=== PATIENT | female | born 1975 | race Caucasian/White ===

== ENCOUNTER → 2017-01-11 | Day surgery (SDC) | payer BC ==
[~2017-01-11] VITALS: Ht 154.9 cm; Wt 117.9 kg
[~2017-01-11] MED LIST: BUPR15TA PO; COLA100C2 OR; DESFLURANE 240 ML INHALANT As Ordered ONE; GLYCOPYRROLATE INJ 0.2 MG/ML 2 ML VIAL As Ordered ONE; HYDR12CA PO; KETOROLAC 60 MG/2 ML VIAL (J1885) As Ordered ONE; LIDOCAINE 2% INJ 100 MG/5 ML SDV (FOR ANES.) As Ordered ONE; LISI10TA4 OR; LR 1,000 ML IV SCH; MEPERIDINE INJ 25 MG/ML VIAL (J2175) As Ordered ONE; METOCLOPRAMIDE INJ 10MG/2ML VIAL (J2765) IV PRN; MIDAZOLAM INJ 2 MG/2 ML VIAL (J2250) As Ordered ONE; MOBI15TA PO; NEOSTIGMINE 1MG/ML 5 ML SYRINGE (J2710) As Ordered ONE; NIFE15TA PO; NORCO, ANEXSIA 5/325MG TABLET (HYDROcodone/ACETAMINOPHEN) PO PRN; NORE0.353 PO; ODANSETRON PO; ONDANSETRON 4MG/2ML VIAL (J2405) As Ordered ONE; ONDANSETRON 4MG/2ML VIAL (J2405) IV PRN; ONDANSETRON PO; PERC5TAB8 OR; PERCOCET 5MG/325MG TAB As Ordered ONE; PERCOCET 5MG/325MG TAB PO PRN; PROPOFOL 200 MG/20 ML VIAL As Ordered ONE; RANI150T PO; ROCURONIUM BROMIDE 50 MG/5 ML VIAL As Ordered ONE; ROPIvacaine 0.5% 30 ML INJECTION (J2795) As Ordered ONE; SERT50TA PO; SING10TA32 PO; SUCCINYLCHOLINE 100 MG/5 ML SYRINGE (J0330) As Ordered ONE; TRAZ50TA4 PO; VITA50003 PO; VITA500T OR; [UNRECOGNIZED DRUG - OTHER] PO; fentaNYL 100 MCG/2 ML INJECTION (J3010) As Ordered ONE; fentaNYL 100 MCG/2 ML INJECTION (J3010) IV PRN
[2017-01-11] MEDS: MEPERIDINE INJ 25 MG/ML VIAL (J2175) IV PRN ×2 (09:35→09:40)
[2017-01-11 11:30] VITALS: BP 125/63
--- NOTE | 2017-01-11 14:29 | RO ---
DATE OF PROCEDURE: 01/11/2017 PREOPERATIVE DIAGNOSIS: Right knee arthritis and medial meniscus tear, morbid obesity. POSTOPERATIVE DIAGNOSIS: Right knee arthritis and medial meniscus tear, morbid obesity. PROCEDURE: Right knee operative arthroscopy, partial medial meniscectomy and chondroplasty of medial femoral condyle and patellofemoral joint. SURGEON: Dr. Adin Hutchison TABLE AND DESK FINISHER: Nathan Osman ANESTHESIA: General. ESTIMATED BLOOD LOSS: Minimal. COMPLICATIONS: None. INDICATION: This is a 41-year-old morbidly obese woman with a body mass index (BMI) of 48 or 49 who presents with longstanding knee pain. MRI scan was consistent with possible medial meniscus tear. She also had some degree of arthritis. She understood the nature of the procedure and wished to go ahead with arthroscopy having failed conservative management. The risks include bleeding, infection, damage to nerves, vessels, persistent pain, blood clots, medical problems, among others. She understood that we are not able to typically do much about arthritis with a knee arthroscopy and that her weight is probably playing a big role in her knee pain. PROCEDURE: The patient was taken to the operating room and placed supine position after general anesthesia was induced. The right lower extremity was prepped and draped in the usual sterile fashion. She had an extremely large thigh and knee which made it very difficult to identify bony landmarks. I was able to find the inferolateral portal using a spinal needle and then made the portal per routine after we did a time-out. I then inserted the camera. We had significant difficulty visualizing, primarily due to her weight and getting around the knee. I irrigated the knee out. I was able to identify the patellofemoral joint. She had extensive grade 3 to 4 changes on the trochlea and some grade 2 to 3 changes on the patella. I proceeded down both medial and lateral gutters, identified the medial compartment. There was a posterior horn medial meniscus tear that I was able to probe and resect this with a combination of basket punch and a 4.2 shaver. There was extensive medial compartment osteoarthritis. There were grade 3 changes. This was smoothed off, just removing any loose articular cartilage flaps. The meniscus was probed and felt to be stable. No clear evidence of other tear. I did debride some of the fat pad, which was unremarkable. I proceeded to the lateral compartment. There was some mild arthritic change there, but no evidence of meniscus pathology. I then proceeded back to the patellofemoral joint and removed any loose articular flaps. I then irrigated copiously, removed the instrumentation, and closed the portals using #4-0 nylon suture. I injected 30 mL of Naropin. This was coded as an unusually difficult procedure due to her morbid obesity and significantly larger leg which made this much more difficult to visualize and perform the surgery. The plan will be routine postoperative. She was taken to recovery room in stable condition after a sterile dressing was applied. No tourniquet had been used.
== END | disposition home or self-care (01) ==
LOC: M SDC 07:06
PROVIDERS: ATTEND Orthopaedic Surgery
DX: M23.221 Derangement of posterior horn of medial meniscus due to old tear or injury, right knee (principal); M17.11 Unilateral primary osteoarthritis, right knee; E66.01 Morbid (severe) obesity due to excess calories; R07.9 Chest pain, unspecified; I73.00 Raynaud's syndrome without gangrene; I10 Essential (primary) hypertension; F41.9 Anxiety disorder, unspecified; F32.9 Major depressive disorder, single episode, unspecified; R29.898 Other symptoms and signs involving the musculoskeletal system; R51 Headache; R06.83 Snoring; G47.30 Sleep apnea, unspecified; Z91.040 Latex allergy status; Z79.899 Other long term (current) drug therapy; Z98.51 Tubal ligation status; Z87.442 Personal history of urinary calculi
CPT/HCPCS: 29881; 97116; J0330; J0690; J1885; J2175; J2250; J2405; J2710; J2795; J3010

== ENCOUNTER 2017-02-21 08:46 | Inpatient (IN) | payer BC ==
[~2017-02-21] VITALS: Ht 154.9 cm; Wt 118.7 kg
[~2017-02-21 08:46] MED LIST changes: -DESFLURANE 240 ML INHALANT As Ordered ONE; -GLYCOPYRROLATE INJ 0.2 MG/ML 2 ML VIAL As Ordered ONE; -KETOROLAC 60 MG/2 ML VIAL (J1885) As Ordered ONE; -LIDOCAINE 2% INJ 100 MG/5 ML SDV (FOR ANES.) As Ordered ONE; -LR 1,000 ML IV SCH; -MEPERIDINE INJ 25 MG/ML VIAL (J2175) As Ordered ONE; -METOCLOPRAMIDE INJ 10MG/2ML VIAL (J2765) IV PRN; -MIDAZOLAM INJ 2 MG/2 ML VIAL (J2250) As Ordered ONE; -NEOSTIGMINE 1MG/ML 5 ML SYRINGE (J2710) As Ordered ONE; -NORCO, ANEXSIA 5/325MG TABLET (HYDROcodone/ACETAMINOPHEN) PO PRN; -ONDANSETRON 4MG/2ML VIAL (J2405) As Ordered ONE; -ONDANSETRON 4MG/2ML VIAL (J2405) IV PRN; -PERCOCET 5MG/325MG TAB As Ordered ONE; -PERCOCET 5MG/325MG TAB PO PRN; -PROPOFOL 200 MG/20 ML VIAL As Ordered ONE; -ROCURONIUM BROMIDE 50 MG/5 ML VIAL As Ordered ONE; -ROPIvacaine 0.5% 30 ML INJECTION (J2795) As Ordered ONE; -SUCCINYLCHOLINE 100 MG/5 ML SYRINGE (J0330) As Ordered ONE; -fentaNYL 100 MCG/2 ML INJECTION (J3010) As Ordered ONE; -fentaNYL 100 MCG/2 ML INJECTION (J3010) IV PRN
[2017-02-21 10:42] LABS: METHADONE URINE NEGATIVE (NEGATIVE)
[2017-02-21 10:51] LABS: MEAN CORPUSCULAR HEMOGLOBIN 31.9 pg (27.0-33.0); MEAN CORPUSCULAR HGB CONC 34.6 g/dl (32.0-36.5); RED CELL DISTRIBUTION WIDTH 12.3 % (11.5-14.5)
[2017-02-21 11:23] LABS: ALBUMIN 3.5 GM/DL (3.2-5.2); ALBUMIN/GLOBULIN RATIO 0.95 (1.00-1.93); ALKALINE PHOSPHATASE 101 U/L (45-117); ALT/SGPT 25 U/L (12-78); ANION GAP 6 MEQ/L (8-16); AST/SGOT 14 U/L (15-37); BILIRUBIN,DIRECT 0.1 MG/DL (0.0-0.2); BILIRUBIN,TOTAL 0.6 MG/DL (0.2-1.0); BLOOD UREA NITROGEN 10 MG/DL (7-18); CALCIUM LEVEL 8.9 MG/DL (8.5-10.1); CARBON DIOXIDE LEVEL 32 MEQ/L (21-32); CHLORIDE LEVEL 106 MEQ/L (98-107); CREATININE FOR GFR 0.74 MG/DL (0.55-1.02); GLOMERULAR FILTRATION RATE > 60.0 (>58); GLUCOSE, FASTING 98 MG/DL (70-105); POTASSIUM SERUM 3.7 MEQ/L (3.5-5.1); SODIUM LEVEL 144 MEQ/L (136-145); TOTAL PROTEIN 7.2 GM/DL (6.4-8.2)
[2017-02-21] MEDS ORDERED: PATIENT COMMENT (14:08)
[2017-02-21] MEDS ORDERED: NIFE30TA7 PO (14:08)
[2017-02-21] MEDS ORDERED: FLON1SPR (14:08)
[2017-02-21 16:56] VITALS: BP 123/77
[2017-02-21] MEDS ORDERED: MOM 30ML SUSPENSION UDC PO PRN (18:15)
[2017-02-21] MEDS ORDERED: MAALOX 30 ML SUSP *UDC PO PRN (18:15)
[2017-02-21] MEDS: FAMOTIDINE 20 MG TAB PO SCH (21:51)
[2017-02-21] MEDS: buPROPion **SR TABLET** (ZYBAN) 150MG PO SCH (21:51)
[2017-02-21] MEDS: traZODone 50 MG TAB PO SCH (21:51)
[2017-02-21] MEDS: ACETAMINOPHEN TAB 650MG DOSE (2X325MG) PO PRN (21:53)
[2017-02-22 06:51] VITALS: BP 124/70
[2017-02-22] MEDS ORDERED: VITAMIN D 50,000 UNITS CAPSULE (ERGOCALCIFEROL 1.25MG) PO SCH (09:00)
[2017-02-22] MEDS: MELOXICAM (MOBIC) 7.5 MG TAB PO SCH (09:08)
[2017-02-22] MEDS: FAMOTIDINE 20 MG TAB PO SCH ×2 (09:08→21:32)
[2017-02-22] MEDS: FLUTICASONE PROP 0.05% NASAL SPRAY 16 GM (FLONASE) SCH (09:08)
[2017-02-22] MEDS: MONTELUKAST 10 MG TAB PO SCH (09:08)
[2017-02-22] MEDS: buPROPion **SR TABLET** (ZYBAN) 150MG PO SCH ×2 (09:08→21:32)
[2017-02-22] MEDS: hydroCHLOROthiazide 12.5 MG CAPSULE PO SCH (09:08)
[2017-02-22] MEDS: NIFEdipine 30 MG XL TAB PO SCH (09:09)
[2017-02-22] MEDS: SERTRALINE HCL 50 MG TAB PO SCH (09:09)
--- NOTE | 2017-02-22 09:13 | HPEPDOC ---
Medical History and Physical Date of Admission Feb 21, 2017 at 13:20 History and Physical PCP: Dr Manuelito Falcon ATTENDING: Dr. Chase Casiano HPI: 41yo female admitted to [facility] for unspecified depressive disorder, being medically examined today. No acute medical complaints today. Denies any fevers, chills, weakness, fatigue, PEGUERO, CP, SOB, cough, palpitations, abdominal pain, N/V /D or changes in bowel or bladder habits. PMHx: GERD Hypertension Depression Anxiety Insomnia Allergic rhinitis History of kidney stones Self-mutilation Osteoarthritis/chronic right knee pain PTSD Vitamin D deficiency Obesity, BMI 48.1 PSHX: Right knee arthroscopy 01/24 Tonsillectomy Uterine ablation Cholecystectomy Cystoscopy/stone removal Bilateral tubal ligation SOCHX: Resides in: [facility] Marital Status: Kids: Two Employment: [employer] Tobacco use: Denies ETOH: Denies Illicit Drugs: Denies IV Drug Use: Denies Tattoos done unprofessionally: Denies FAMHX: Mother: Alive, diabetes Father: , unknown Siblings: 2 step siblings Alive, well Children: Alive, well Unexpected deaths due to medical reasons: None. ROS: As noted in HPI, otherwise 11pt ROS of systems reviewed and remarkable only for LMP unknown, history of uterine ablation. PE: GEN: 41 yo F, appears stated age. Well-nourished, well developed. No acute distress. Alert and oriented x 3. Pleasant, interactive. HEENT: Normocephalic, atraumatic. Pupils are equal, round, and reactive to light. Extraocular movements are intact. No nystagmus appreciated. Sclera are nonicteric. Conjunctiva without injection. Nose midline. Nasal turbinates without bogginess. EACs both patent BL. TMs both visualized and newsome with good cone of light, no bulging or erythema. No facial asymmetry. Moist mucous membranes. Dentition fair. Pharynx pink and moist, no cobblestoning. Neck supple , trachea midline. No lymphadenopathy or thyromegaly appreciated. CHEST: Regular rate and rhythm, +S1, +S2 LUNGS: Clear to auscultation bilaterally. No wheezes, rales, or rhonchi. Breathing appears symmetric and easy. Patient is speaking in full sentences. No accessory muscle use. ABD: Round, soft, non-tender, non-distended. +Bowel sounds throughout. No rebound or guarding. No costovertebral angle tenderness. EXT: Pulses 2+ bilaterally dorsalis pedis and radial. No lower extremity edema appreciated. SKIN: Star, dry, warm. Capillary refill <2sec. No rashes. Small laceration is noted at the left wrist. No drainage, no erythema. NEURO: Alert and oriented x 3. Cranial nerves III-XII are intact. No focal deficits appreciated. EKG: pending. A&P: 41yo female admitted to [facility] for unspecified depressive disorder 1. Psych. Plan per Psychiatry. Obtain baseline EKG to assure the safety of psychiatric medications as they can prolong the QT interval. 2. Left wrist laceration. Appears to be healing. Dry dressing if needed. 3. Hypertension. Continue hydrochlorothiazide 12.5 mg daily and nifedipine ER 30 mg by mouth daily. 4. Follow up with PCP on discharge. 5. GERD. Continue Pepcid. 6. Allergic rhinitis. Continue Singulair 10 mg daily and Flonase 2 sprays each nostril daily. 7. Vitamin D deficiency. Continue vitamin D supplement. Update vitamin D level. 8. Obesity. BMI noted to be 48.1. Complicates care. 9. Chronic right knee pain. Continue meloxicam 15 mg daily. 10. Patient remains on OCP from home. 11. Davida VIDES present throughout exam. Vital Signs Vital Signs Date Time Temp Pulse Resp B/P (MAP) Pulse Ox O2 Delivery O2 Flow Rate FiO2 02/22/17 06:51 98.2 61 16 124/70 (88) 02/21/17 15:43 96 02/21/17 09:29 Room Air Laboratory Data Labs 24H Laboratory Tests 2 02/21/17 10:13: Urine Amphetamines Screen NEGATIVE, Urine Benzodiazepines Screen NEGATIVE, Urine Opiates Screen NEGATIVE, Urine Methadone Screen NEGATIVE, Urine Barbiturates Screen NEGATIVE, Urine Phencyclidine Screen NEGATIVE, Urine Cocaine Metabolite Screen NEGATIVE, Urine Cannabinoids Screen NEGATIVE 02/21/17 10:40: Anion Gap 6L, Glomerular Filtration Rate > 60.0, Calcium Level 8.9, Aspartate Amino Transf (AST/SGOT) 14L, Alanine Aminotransferase (ALT/SGPT) 25, Alkaline Phosphatase 101, Total Bilirubin 0.6, Direct Bilirubin 0.1, Total Protein 7.2, Albumin 3.5, Albumin/Globulin Ratio 0.95L, Thyroid Stimulating Hormone (TSH) 2.500, Salicylates Level < 1.7L, Acetaminophen Level < 2.0L, Ethyl Alcohol Level < 0.003 CBC/BMP Laboratory Tests 02/21/17 10:40 Red Blood Count 4.53, Mean Corpuscular Volume 92.0, Mean Corpuscular Hemoglobin 31.9, Mean Corpuscular Hemoglobin Concent 34.6, Red Cell Distribution Width 12.3 Home Medications Scheduled (Norethindrone) 0.35 Mg Tab, 0.35 MG PO DAILY (Flonase Allergy Relief) 50 Mcg/Act Spr, 2 SPRAY NA DAILY Bupropion HCl (Wellbutrin Sr) 150 Mg Tabcr, 150 MG PO BID Ergocalciferol (Vitamin D) 50,000 Unit Cap, 50,000 UNIT PO Q2WK TAKES THE 1ST AND 15TH OF EVERY MONTH Hydrochlorothiazide (Hydrochlorothiazide) 12.5 Mg Cap, 12.5 MG PO DAILY Meloxicam (Mobic) 15 Mg Tab, 15 MG PO DAILY Montelukast Sodium (Singulair) 10 Mg Tab, 10 MG PO DAILY Nifedipine (Nifedipine ER) 30 Mg Tab, 30 MG PO DAILY Ranitidine HCl (Ranitidine HCl) 150 Mg Tab, 1 TAB PO BID Sertraline Hcl (Sertraline HCl) 50 Mg Tab, 150 MG PO DAILY Trazodone HCl (Trazodone HCl) 50 Mg Tab, 50 MG PO QHS Miscellaneous Medications [Patient Comment] PATIENT STATES SHE HAS BEEN OUT OF ALL OF HER MEDICATIONS FOR ABOUT 2 WEEKS, DOES HAVE TRAZODONE AND FLONASE Allergies Coded Allergies: Latex (Verified Allergy, Unknown, RASH, 02/21/17) Rula Abreu Feb 22, 2017 09:13
[2017-02-22 10:23] LABS: CONTROL LINE HCG INT CTR LINE PRESENT
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
[2017-02-22] MEDS: ACETAMINOPHEN TAB 650MG DOSE (2X325MG) PO PRN (16:12)
--- NOTE | 2017-02-22 17:17 | ECGEPIP ---
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
[2017-02-22 18:00] VITALS: BP 117/61
[2017-02-22] MEDS: traZODone 50 MG TAB PO SCH (21:32)
[2017-02-23 06:45] VITALS: BP 142/98
[2017-02-23] MEDS: MELOXICAM (MOBIC) 7.5 MG TAB PO SCH (08:30)
[2017-02-23] MEDS: FAMOTIDINE 20 MG TAB PO SCH ×2 (08:30→21:31)
[2017-02-23] MEDS: buPROPion **SR TABLET** (ZYBAN) 150MG PO SCH ×2 (08:30→21:31)
[2017-02-23] MEDS: MONTELUKAST 10 MG TAB PO SCH (08:30)
[2017-02-23] MEDS: FLUTICASONE PROP 0.05% NASAL SPRAY 16 GM (FLONASE) SCH (08:30)
[2017-02-23] MEDS: SERTRALINE HCL 50 MG TAB PO SCH (08:30)
[2017-02-23] MEDS: NIFEdipine 30 MG XL TAB PO SCH (08:31)
[2017-02-23] MEDS: hydroCHLOROthiazide 12.5 MG CAPSULE PO SCH (08:31)
[2017-02-23] MEDS ORDERED: NORETHINDRONE 0.35 MG PO SCH (09:00)
[2017-02-23] MEDS: ACETAMINOPHEN TAB 650MG DOSE (2X325MG) PO PRN (13:14)
--- NOTE | 2017-02-23 16:11 | MHIPNPDOC ---
[facility] Progress Note Progress Note DATE OF SERVICE: 02/23/17 HISTORY OF THE PRESENT ILLNESS: Patient is a 41-year-old female who reportedly had gone to [facility]'s office where her psychotropic medications are managed and cut herself on wrist with her lopez while waiting to see . Patient was then sent to [facility] ER for evaluation by outpatient provider, indicated admission she had been experiencing passive suicidal ideation, but denies having plan or intent to kill self at the time. Crystal Flat Grinder met with patient today to assess treatment progress on inpatient unit. Patient reports ongoing improvement to symptoms since restarting her medication regimen prescribed by her outpatient provider which she had been taking with good effect up until 2 weeks ago. Patient denies medication side effects. Patient reports current anxiety level of 3/10, depression 3/10, denies suicidal and homicidal ideation, denies auditory or visual hallucinations, denies urge to engage in self-injurious behavior. Patient indicates she has been sleeping well and denies nightmare symptoms, states energy level and appetite are improving, states concentration and focus remain challenging. Patient denies physical pain and presents with no signs of acute distress at time of interaction. Patient states and friend visited her on the unit last night and indicates visits went well. VITALS: See below NEW TEST RESULTS: No new results PAST MEDICAL/SURGICAL HISTORY: GERD, hypertension, allergic rhinitis, history of kidney stones, osteoarthritis/chronic right knee pain, vitamin D deficiency, obesity, right knee arthroscopic the 01/2017, tonsillectomy, uterine ablation, cholecystectomy, cystoscopy/stone removal, bilateral tubal ligation. Patient has laceration to left wrist which appears to be healing, PA is aware and is treating Labs on admission indicated low anion gap, AST and AGR UDS negative HCG negative 02/22/17 Normal sinus rhythm Normal EKG Comparison tracing not on file CURRENT MEDICATIONS: See below MENTAL STATUS EXAMINATION: General appearance: Patient is a 41-year old female, who is pleasant and cooperative, engageable, makes fair eye contact, is less disheveled today, dressed in hospital clothing, ambulates with steady gait, appears stated age Speech: Of normal rate, rhythm, volume, spontaneous, coherent Thought processes: Linear, logical, goal-directed. Thought content: Rational, logical, no tangentiality or paranoia noted, no perseveration. Abstract reasoning and computation: Appear intact Description of associations: Intact. Description of abnormal or psychotic thoughts: Patient denies suicidal or homicidal ideation, denies auditory or visual hallucinations, does not appear to be responding to internal stimuli, does not endorse bizarre or paranoid ideation, and denies preoccupation with violence or obsessions. Judgment: Poor. Insight: Poor. Orientation: A and O 3. Recent and remote memory: Appear intact Attention span and concentration: Appears within normal limits. Fund of knowledge: Adequate. Mood: "I'm ok, I feel pretty good in the hospital." Patient continues to appear depressed and anxious, no mood lability noted Affect: Blunted but brightens, congruent with mood. DIAGNOSES: Major depressive disorder, recurrent, moderate, rule out anxiety disorder, rule out PTSD, rule out bereavement ASSESSMENT: Patient appears to be adjusting to unit, isolates to room at times but is generally visible on unit, engaging selectively with staff and peers, is pleasant and cooperative, and presents with no behavior management challenges. Patient reports improvement to symptoms of anxiety and depression since restarting medication regimen which she had been taking in outpatient environment, denies need for dosing adjustment and denies medication side effects. Patient denies current suicidal or homicidal ideation and verbalizes awareness of how to access supportive services on the unit if needed. Will continue to monitor patient's response to medication restart and will monitor for medication side effects, will evaluate patient's safety, resolution of suicidal ideation and urge to engage in self-injurious behavior, and discharge readiness. Patient reiterates today when prepared for discharge she plans to return home with her and resume outpatient medication management with Dr. Medeiros. Patient is also agreeable to participating in case management and psychotherapy services through [facility]. MANAGEMENT PLAN: Continue Zoloft 150 mg po q day, Wellbutrin SR 150 mg po BID, and trazodone 50 mg po q hs Maintain safety precautions Patient to attend groups and participate in unit programming to develop coping strategies Engage patient in discharge planning process and arrange meeting with support system to ensure safe discharge planning when appropriate Patient to follow up with PCM upon discharge TIME SPENT: 35 minutes Vital Signs Vital Signs Date Time Temp Pulse Resp B/P (MAP) Pulse Ox O2 Delivery O2 Flow Rate FiO2 02/23/17 08:31 128/78 02/23/17 06:45 98.3 73 20 02/21/17 15:43 96 02/21/17 09:29 Room Air Current Medications Current Medications Acetaminophen (Tylenol Tab) 650 mg Q6HP PRN PO HEADACHE or DISCOMFORT Last administered on 02/23/17 13:14; Start 02/21/17 at 18:15; Stop 03/23/17 at 18:14 Al Hydrox/Mg Hydrox/Simethicone (Mylanta) 30 ml Q4HP PRN PO HEARTBURN/ INDIGESTION; Start 02/21/17 at 18:15; Stop 03/23/17 at 18:14 Bupropion HCl (Zyban, Wellbutrin Sr) 150 mg BID PO Last administered on 08:30; Start 02/21/17 at 21:00; Stop 03/23/17 at 20:59 Famotidine (Pepcid) 20 mg BID PO Last administered on 02/23/17 08:30; Start at 21:00; Stop 03/23/17 at 20:59 Fluticasone Propionate (Flonase 0.05% Nasal [place]) 2 spray DAILY NA Last administered on 02/23/17 08:30; Start 02/22/17 at 09:00; Stop 03/24/17 at 08:59 Home Med (Med Rec Complete!) ASDIRECTED XX ; Start 02/21/17 at 14:15; Stop at 14:15; Status DC Hydrochlorothiazide (Hydrodiuril) 12.5 mg DAILY PO Last administered on 08:31; Start 02/22/17 at 09:00; Stop 03/24/17 at 08:59 Magnesium Hydroxide (Milk Of Magnesia) 30 ml DAILYPRN PRN PO CONSTIPATION; Start 02/21/17 at 18:15; Stop 03/23/17 at 18:14 Meloxicam (Mobic) 15 mg DAILY PO Last administered on 02/23/17 08:30; Start at 09:00; Stop 03/24/17 at 08:59 Miscellaneous (Unresolved Clarification Entry) SEE LABEL COMMENTS UNRESOLVED XX ; Start 02/21/17 at 00:01; Stop 03/23/17 at 00:00 Montelukast Sodium (Singulair) 10 mg DAILY PO Last administered on 02/23/17 08 :30; Start 02/22/17 at 09:00; Stop 03/24/17 at 08:59 Nifedipine (Procardia Xl) 30 mg DAILY PO Last administered on 02/23/17 08:31; Start 02/22/17 at 09:00; Stop 03/24/17 at 08:59 Patient Own Medication (Patient'S Own Med) Norethindrone 0.35 mg po daily DAILY PO ; Start 02/23/17 at 09:00; Stop 03/25/17 at 08:59; Status Future Hold Sertraline HCl (Zoloft) 150 mg DAILY PO Last administered on 02/23/17 08:30; Start 02/22/17 at 09:00; Stop 03/24/17 at 08:59 Trazodone HCl (Desyrel) 50 mg QHS PO Last administered on 02/22/17 21:32; Start 02/21/17 at 21:00; Stop 03/23/17 at 20:59 Vitamin D (Drisdol) 50,000 units Q14D@09 PO Last administered on 02/22/17 09: 08; Start 02/22/17 at 09:00; Stop 02/22/17 at 14:45; Status DC Vitamin D (Drisdol) 50,000 units Th@09 PO ; Start 03/01/17 at 09:00; Stop at 08:59 Allergies Coded Allergies: Latex (Verified Allergy, Unknown, RASH, 02/21/17) Krys Mcrae Feb 23, 2017 16:11
[2017-02-23 18:00] VITALS: BP 118/68
[2017-02-23] MEDS: traZODone 50 MG TAB PO SCH (21:31)
[2017-02-24 06:32] VITALS: BP 125/73
[2017-02-24] MEDS: MELOXICAM (MOBIC) 7.5 MG TAB PO SCH (09:01)
[2017-02-24] MEDS: FAMOTIDINE 20 MG TAB PO SCH ×2 (09:01→22:47)
[2017-02-24] MEDS: FLUTICASONE PROP 0.05% NASAL SPRAY 16 GM (FLONASE) SCH (09:01)
[2017-02-24] MEDS: MONTELUKAST 10 MG TAB PO SCH (09:02)
[2017-02-24] MEDS: NIFEdipine 30 MG XL TAB PO SCH (09:02)
[2017-02-24] MEDS: buPROPion **SR TABLET** (ZYBAN) 150MG PO SCH ×2 (09:02→22:47)
[2017-02-24] MEDS: SERTRALINE HCL 50 MG TAB PO SCH (09:02)
[2017-02-24] MEDS: hydroCHLOROthiazide 12.5 MG CAPSULE PO SCH (09:02)
[2017-02-24] MEDS: ACETAMINOPHEN TAB 650MG DOSE (2X325MG) PO PRN (14:45)
[2017-02-24] MEDS ORDERED: IBUPROFEN 600 MG TAB PO ONE (18:00)
[2017-02-24 18:15] VITALS: BP 115/72
[2017-02-24] MEDS: traZODone 50 MG TAB PO SCH (22:47)
[2017-02-25 06:16] VITALS: BP 113/62
--- NOTE | 2017-02-25 07:40 | IPN ---
DATE: 02/24/2017 SUBJECTIVE: "I am feeling a little better." OBJECTIVE: The patient continues to improve slowly. The patient reports good sleep with the help of trazodone. Denies any side effects from the medication. No evidence of psychotic symptoms. No auditory or visual hallucinations or delusions. MENTAL STATUS EXAMINATION: The patient is dressed in [facility]. The patient is cooperative. Speech is normal in rate, volume and articulation. Mood is depressed and anxious. Affect is restricted. No delusions or hallucinations. Memory, attention and concentration are fair. The patient is able to contract for safety during the hospitalization. Insight and judgment is limited. ASSESSMENT: 1. Depression. 2. Suicidal ideation. PLAN: 1. Continue with Zoloft 150 mg by mouth every morning. 2. Continue with bupropion 150 mg by mouth twice a day 3. Continue with trazodone 50 mg by mouth nightly. 4. Continue medication management, individual and group therapy.
[2017-02-25] MEDS: hydroCHLOROthiazide 12.5 MG CAPSULE PO SCH (09:04)
[2017-02-25] MEDS: NIFEdipine 30 MG XL TAB PO SCH (09:04)
[2017-02-25] MEDS: buPROPion **SR TABLET** (ZYBAN) 150MG PO SCH ×2 (09:04→21:19)
[2017-02-25] MEDS: MONTELUKAST 10 MG TAB PO SCH (09:05)
[2017-02-25] MEDS: FAMOTIDINE 20 MG TAB PO SCH ×2 (09:05→21:20)
[2017-02-25] MEDS: SERTRALINE HCL 50 MG TAB PO SCH (09:05)
[2017-02-25] MEDS: MELOXICAM (MOBIC) 7.5 MG TAB PO SCH (09:05)
[2017-02-25] MEDS: FLUTICASONE PROP 0.05% NASAL SPRAY 16 GM (FLONASE) SCH (09:07)
[2017-02-25 18:00] VITALS: BP 122/78
--- NOTE | 2017-02-25 18:50 | IPN ---
DATE: 02/25/2017 SUBJECTIVE: "I'm feeling better." OBJECTIVE: The patient continues improving. The patient's facial expression is better, as is her psychomotor retardation. The patient is able to contract for safety during the interview. The patient is denying side effect from the medication. No evidence of psychotic symptoms. Motivated for treatment. MENTAL STATUS EXAMINATION: Patient dressed in [facility]. Patient is cooperative. Speech is normal in rate, volume and articulation. Mood is depressed but improving. Affect is less restricted. No delusions or hallucinations. Memory, attention and concentration are fair. The patient is able to contract for safety during her hospitalization. Insight and judgment are fair. ASSESSMENT: 1. Depression. 2. Suicidal ideation. PLAN: 1. Continue Zoloft 150 mg by mouth every morning. 2. Continue bupropion 150 mg by mouth twice a day. 3. Continue trazodone 50 mg by mouth at bedtime. 4. Continue medication management, individual and group therapy.
[2017-02-25] MEDS: traZODone 50 MG TAB PO SCH (21:19)
[2017-02-25] MEDS: ACETAMINOPHEN TAB 650MG DOSE (2X325MG) PO PRN (22:01)
[2017-02-26 07:12] VITALS: BP 165/76
[2017-02-26] MEDS: MELOXICAM (MOBIC) 7.5 MG TAB PO SCH (09:12)
[2017-02-26] MEDS: FLUTICASONE PROP 0.05% NASAL SPRAY 16 GM (FLONASE) SCH (09:12)
[2017-02-26] MEDS: buPROPion **SR TABLET** (ZYBAN) 150MG PO SCH ×2 (09:12→21:59)
[2017-02-26] MEDS: FAMOTIDINE 20 MG TAB PO SCH ×2 (09:12→22:00)
[2017-02-26] MEDS: NIFEdipine 30 MG XL TAB PO SCH (09:13)
[2017-02-26] MEDS: MONTELUKAST 10 MG TAB PO SCH (09:13)
[2017-02-26] MEDS: hydroCHLOROthiazide 12.5 MG CAPSULE PO SCH (09:13)
[2017-02-26] MEDS: SERTRALINE HCL 50 MG TAB PO SCH (09:14)
--- NOTE | 2017-02-26 16:14 | MHIPNPDOC ---
[facility] Progress Note Progress Note DATE OF SERVICE: 02/26/17 HISTORY: day 6. Pt admitted with depression. Was out of meds for 2 weeks due to lack of funds. saw pt in the absence of her usual tx provider. VITAL SIGNS: See below. NEW TEST RESULTS: na CURRENT MEDICATIONS: See below. MENTAL STATUS EXAMINATION: Patient is a 41-year old female, who is dressed in hospital attire, easy to engage, makes good eye contact and smiles as she talks about her land and home. Speech: Is spontaneous, soft and clear. Even r/r. Language skills are intact Thought processes including: coherent Thought content: appropriate. Abstract reasoning, and computation: concrete. Description of associations: good. Description of abnormal or psychotic thoughts: denies perceptual disturbance. no delusions noted. Denies suicidal thoughts. Judgment: fair Insight: fair. Orientation: well oriented in all spheres. Recent and remote memory: appears intact Attention span and concentration: adequate Fund of knowledge:full Mood: depressed. Affect: has range. DIAGNOSES: Major depressive disorder, recurrent, moderate, rule out anxiety disorder, rule out PTSD, rule out bereavement ASSESSMENT:pt seen in the absence of her provider, Krys Mcrae APN. She states her is brining in her medication and her CPAP tonight. States she is having difficulty sleeping. Is using Trazodone and agrees to raising the dose. Pt also reports right upper quadrant abdominal pain and states "I hope it is not a kidney stone", then adds that she can have kidney stones and no pain. We will monitor and asked pt to keep track if pain increases or changes. She denies pain currently, just last night. Pt is visible in the [facility] area, working on a puzzle with peers. Talks excitedly about her new home they plan to build on 15 [address] in [place]. She and her are living in a tent right now. She is able to shower at different friends homes or other places. Talked with pt about patient assistance programs available by the pharmaceutical companies, that pay for their monthly medications. Will inquire to see of provider and or DC Sheet Cutting Operator are already looking into this. Pt denies SI and HI. Pt denies psychotic symptoms and non are illicited. MANAGEMENT PLAN: will review trazodone and increase by 50 mg for c/o insomnia. pt denies any immediate concerns or needs. TIME SPENT: 15 minutes. Vital Signs Vital Signs Date Time Temp Pulse Resp B/P (MAP) Pulse Ox O2 Delivery O2 Flow Rate FiO2 02/26/17 09:13 165/76 02/26/17 07:12 97.5 77 16 02/21/17 15:43 96 02/21/17 09:29 Room Air Current Medications Current Medications Acetaminophen (Tylenol Tab) 650 mg Q6HP PRN PO HEADACHE or DISCOMFORT Last administered on 02/25/17 22:01; Start 02/21/17 at 18:15; Stop 03/23/17 at 18:14 Al Hydrox/Mg Hydrox/Simethicone (Mylanta) 30 ml Q4HP PRN PO HEARTBURN/ INDIGESTION; Start 02/21/17 at 18:15; Stop 03/23/17 at 18:14 Bupropion HCl (Zyban, Wellbutrin Sr) 150 mg BID PO Last administered on 09:12; Start 02/21/17 at 21:00; Stop 03/23/17 at 20:59 Famotidine (Pepcid) 20 mg BID PO Last administered on 02/26/17 09:12; Start at 21:00; Stop 03/23/17 at 20:59 Fluticasone Propionate (Flonase 0.05% Nasal [place]) 2 spray DAILY NA Last administered on 02/26/17 09:12; Start 02/22/17 at 09:00; Stop 03/24/17 at 08:59 Home Med (Med Rec Complete!) ASDIRECTED XX ; Start 02/21/17 at 14:15; Stop at 14:15; Status DC Hydrochlorothiazide (Hydrodiuril) 12.5 mg DAILY PO Last administered on 09:13; Start 02/22/17 at 09:00; Stop 03/24/17 at 08:59 Magnesium Hydroxide (Milk Of Magnesia) 30 ml DAILYPRN PRN PO CONSTIPATION; Start 02/21/17 at 18:15; Stop 03/23/17 at 18:14 Meloxicam (Mobic) 15 mg DAILY PO Last administered on 02/26/17 09:12; Start at 09:00; Stop 03/24/17 at 08:59 Miscellaneous (Unresolved Clarification Entry) SEE LABEL COMMENTS UNRESOLVED XX ; Start 02/21/17 at 00:01; Stop 03/23/17 at 00:00 Montelukast Sodium (Singulair) 10 mg DAILY PO Last administered on 02/26/17 09 :13; Start 02/22/17 at 09:00; Stop 03/24/17 at 08:59 Nifedipine (Procardia Xl) 30 mg DAILY PO Last administered on 02/26/17 09:13; Start 02/22/17 at 09:00; Stop 03/24/17 at 08:59 Patient Own Medication (Patient'S Own Med) Norethindrone 0.35 mg po daily DAILY PO ; Start 02/23/17 at 09:00; Stop 03/25/17 at 08:59; Status Future Hold Sertraline HCl (Zoloft) 150 mg DAILY PO Last administered on 02/26/17 09:14; Start 02/22/17 at 09:00; Stop 03/24/17 at 08:59 Trazodone HCl (Desyrel) 50 mg QHS PO Last administered on 02/25/17 21:19; Start 02/21/17 at 21:00; Stop 03/23/17 at 20:59 Vitamin D (Drisdol) 50,000 units Q14D@09 PO Last administered on 02/22/17 09: 08; Start 02/22/17 at 09:00; Stop 02/22/17 at 14:45; Status DC Vitamin D (Drisdol) 50,000 units Th@09 PO ; Start 03/01/17 at 09:00; Stop at 08:59 Allergies Coded Allergies: Latex (Verified Allergy, Unknown, RASH, 02/21/17) Patricia Yen Feb 26, 2017 16:14
[2017-02-26 18:00] VITALS: BP 143/78
[2017-02-26] MEDS: traZODone 100 MG TAB PO SCH (22:00)
[2017-02-27 06:00] VITALS: BP 138/70
[2017-02-27] MEDS: FLUTICASONE PROP 0.05% NASAL SPRAY 16 GM (FLONASE) SCH (09:43)
[2017-02-27] MEDS: buPROPion **SR TABLET** (ZYBAN) 150MG PO SCH ×2 (09:44→21:48)
[2017-02-27] MEDS: MONTELUKAST 10 MG TAB PO SCH (09:44)
[2017-02-27] MEDS: NORETHINDRONE 0.35 MG PO SCH (09:44)
[2017-02-27] MEDS: FAMOTIDINE 20 MG TAB PO SCH ×2 (09:44→21:48)
[2017-02-27] MEDS: hydroCHLOROthiazide 12.5 MG CAPSULE PO SCH (09:44)
[2017-02-27] MEDS: MELOXICAM (MOBIC) 7.5 MG TAB PO SCH (09:44)
[2017-02-27] MEDS: SERTRALINE HCL 50 MG TAB PO SCH (09:44)
[2017-02-27] MEDS: NIFEdipine 30 MG XL TAB PO SCH (09:45)
--- NOTE | 2017-02-27 11:19 | MHIPNPDOC ---
[facility] Progress Note Progress Note DATE OF SERVICE: 02/27/17 HISTORY OF THE PRESENT ILLNESS: Patient is a 41-year-old female who reportedly had gone to PCM's office where her psychotropic medications are managed and cut herself on wrist with her lopez while waiting to see . Patient was then sent to [facility] ER for evaluation by outpatient provider, indicated admission she had been experiencing passive suicidal ideation, but denies having plan or intent to kill self at the time. Wind Farm Operations Manager met with patient today to assess treatment progress on inpatient unit. Patient reports current anxiety level /10, depression 3/10, attributes symptoms to "my roommate got discharged today." Patient reports ongoing improvement to symptoms since restarting medication regimen prescribed by her outpatient provider which she stated she had been taking with good effect up until 2 weeks ago. Patient denies medication side effects. Patient denies suicidal and homicidal ideation, however, apparently over the weekend reported to other providers that she was experiencing suicidal ideation with plan to cut , patient denies symptoms today. Patient denies auditory or visual hallucinations, denies current urge to engage in self-injurious behavior. Patient reports improved sleep with recent trazodone dose increase and use of CPAP, denies nightmare symptoms. Patient states energy level and appetite continued to improve, notes concentration and focus remain challenging and informs credit underwriter today that she has been experiencing periods of "blanking out, losing track of time, and people at work sometimes have had to redirect me to tell me what I was doing." Patient denies physical pain and presents with no signs of acute distress at time of interaction. Patient confirmed she is living intent with her on land which they purchased and at which they plan to build a home, initially declines assistance with accessing DSS resources noting , "I won't have anything to do with them because they took my daughter away." Patient then informs credit underwriter that she will accept help from utilization review coordinator on applying for financial assistance. VITALS: See below NEW TEST RESULTS: No new results PAST MEDICAL/SURGICAL HISTORY: GERD, hypertension, allergic rhinitis, history of kidney stones, osteoarthritis/chronic right knee pain, vitamin D deficiency, obesity, right knee arthroscopic the 01/2017, tonsillectomy, uterine ablation, cholecystectomy, cystoscopy/stone removal, bilateral tubal ligation. Patient has laceration to left wrist which appears to be healing, PA is aware and is treating Labs on admission indicated low anion gap, AST and AGR UDS negative HCG negative 02/22/17 Normal sinus rhythm Normal EKG Comparison tracing not on file EEG pending CURRENT MEDICATIONS: See below MENTAL STATUS EXAMINATION: General appearance: Patient is a 41-year old female, who is pleasant and cooperative, engageable, makes fair eye contact, is less disheveled today, dressed in own clothing, ambulates with steady gait, appears stated age, is observed rocking back and forth on her bed intermittently at time of assessment Speech: Of normal rate, rhythm, volume, spontaneous, coherent Thought processes: Linear, logical, goal-directed. Thought content: Rational, logical, no tangentiality or paranoia noted, no perseveration. Abstract reasoning and computation: Appear intact Description of associations: Intact. Description of abnormal or psychotic thoughts: Patient denies suicidal or homicidal ideation, denies auditory or visual hallucinations, does not appear to be responding to internal stimuli, does not endorse bizarre or paranoid ideation, and denies preoccupation with violence or obsessions. Judgment: Poor. Insight: Poor. Orientation: A and O 3. Recent and remote memory: Appear intact Attention span and concentration: Appears within normal limits. Fund of knowledge: Adequate. Mood: "I'm ok." Patient continues to appear depressed and anxious, no mood lability noted Affect: Blunted but brightens, congruent with mood. DIAGNOSES: Major depressive disorder, recurrent, moderate, rule out anxiety disorder, rule out PTSD, rule out bereavement, rule out borderline personality disorder ASSESSMENT: Patient has adjusted to unit, has been more visible, engaging selectively with peers, is pleasant and cooperative with staff, is participating in unit programming, and has presented with no behavior management challenges. Patient reports some improvement to symptoms of anxiety and depression since restarting medication regimen which she had been taking in outpatient environment, indicates increased dose of trazodone is helping to improve sleep, patient denies medication side effects. EEG has been ordered to evaluate periods of "blanking out." Patient denies current suicidal or homicidal ideation, also denies current urge to engage in self-injurious behavior, and verbalizes awareness of how to access supportive services on the unit if needed. Will continue to monitor patient's response to medication restart and will monitor for medication side effects, will evaluate patient's safety, resolution of suicidal ideation and urge to engage in self-injurious behavior, and discharge readiness. Patient reiterates today when prepared for discharge she plans to return home with her and resume outpatient medication management with Dr. Medeiros. Patient is also agreeable to participating in case management and psychotherapy services through [facility], states she is also interested in attending groups through [facility]. Patient is agreeing to allow social media developer/utilization review coordinator to assist in exploring potential financial assistance from DSS MANAGEMENT PLAN: Continue Zoloft 150 mg po q day, Wellbutrin SR 150 mg po BID, and trazodone 100 mg po q hs EEG ordered Maintain safety precautions Patient to attend groups and participate in unit programming to develop coping strategies Engage patient in discharge planning process and arrange meeting with support system to ensure safe discharge planning when appropriate Patient to follow up with PCM upon discharge TIME SPENT: 35 minutes Vital Signs Vital Signs Date Time Temp Pulse Resp B/P (MAP) Pulse Ox O2 Delivery O2 Flow Rate FiO2 02/27/17 09:45 138/70 02/27/17 06:00 98.0 86 20 02/21/17 15:43 96 02/21/17 09:29 Room Air Current Medications Current Medications Acetaminophen (Tylenol Tab) 650 mg Q6HP PRN PO HEADACHE or DISCOMFORT Last administered on 02/25/17 22:01; Start 02/21/17 at 18:15; Stop 03/23/17 at 18:14 Al Hydrox/Mg Hydrox/Simethicone (Mylanta) 30 ml Q4HP PRN PO HEARTBURN/ INDIGESTION; Start 02/21/17 at 18:15; Stop 03/23/17 at 18:14 Bupropion HCl (Zyban, Wellbutrin Sr) 150 mg BID PO Last administered on 09:44; Start 02/21/17 at 21:00; Stop 03/23/17 at 20:59 Famotidine (Pepcid) 20 mg BID PO Last administered on 02/27/17 09:44; Start at 21:00; Stop 03/23/17 at 20:59 Fluticasone Propionate (Flonase 0.05% Nasal [place]) 2 spray DAILY NA Last administered on 02/27/17 09:43; Start 02/22/17 at 09:00; Stop 03/24/17 at 08:59 Home Med (Med Rec Complete!) ASDIRECTED XX ; Start 02/21/17 at 14:15; Stop at 14:15; Status DC Hydrochlorothiazide (Hydrodiuril) 12.5 mg DAILY PO Last administered on 09:44; Start 02/22/17 at 09:00; Stop 03/24/17 at 08:59 Magnesium Hydroxide (Milk Of Magnesia) 30 ml DAILYPRN PRN PO CONSTIPATION; Start 02/21/17 at 18:15; Stop 03/23/17 at 18:14 Meloxicam (Mobic) 15 mg DAILY PO Last administered on 02/27/17 09:44; Start at 09:00; Stop 03/24/17 at 08:59 Miscellaneous (Unresolved Clarification Entry) SEE LABEL COMMENTS UNRESOLVED XX ; Start 02/21/17 at 00:01; Stop 02/26/17 at 20:11; Status DC Montelukast Sodium (Singulair) 10 mg DAILY PO Last administered on 02/27/17 09 :44; Start 02/22/17 at 09:00; Stop 03/24/17 at 08:59 Nifedipine (Procardia Xl) 30 mg DAILY PO Last administered on 02/27/17 09:45; Start 02/22/17 at 09:00; Stop 03/24/17 at 08:59 Patient Own Medication (Patient'S Own Med) 1 TABLET DAILY PO Last administered on 02/27/17 09:44; Start 02/27/17 at 09:00; Stop 03/29/17 at 08:59 Patient Own Medication (Patient'S Own Med) Norethindrone 0.35 mg po daily DAILY PO ; Start 02/23/17 at 09:00; Stop 02/26/17 at 20:11; Status DC Sertraline HCl (Zoloft) 150 mg DAILY PO Last administered on 02/27/17 09:44; Start 02/22/17 at 09:00; Stop 03/24/17 at 08:59 Trazodone HCl (Desyrel) 50 mg QHS PO Last administered on 02/25/17 21:19; Start 02/21/17 at 21:00; Stop 02/26/17 at 16:37; Status DC Trazodone HCl (Desyrel) 100 mg QHS PO Last administered on 02/26/17 22:00; Start 02/26/17 at 21:00; Stop 03/28/17 at 20:59 Vitamin D (Drisdol) 50,000 units Q14D@09 PO Last administered on 02/22/17 09: 08; Start 02/22/17 at 09:00; Stop 02/22/17 at 14:45; Status DC Vitamin D (Drisdol) 50,000 units Th@09 PO ; Start 03/01/17 at 09:00; Stop at 08:59 Allergies Coded Allergies: Latex (Verified Allergy, Unknown, RASH, 02/21/17) Krys Mcrae Feb 27, 2017 11:19
[2017-02-27 18:00] VITALS: BP 130/66
[2017-02-27] MEDS: traZODone 100 MG TAB PO SCH (21:48)
[2017-02-28 06:25] VITALS: BP 121/61
[2017-02-28] MEDS: SERTRALINE HCL 50 MG TAB PO SCH (09:01)
[2017-02-28] MEDS: FAMOTIDINE 20 MG TAB PO SCH ×2 (09:01→21:41)
[2017-02-28] MEDS: MELOXICAM (MOBIC) 7.5 MG TAB PO SCH (09:01)
[2017-02-28] MEDS: FLUTICASONE PROP 0.05% NASAL SPRAY 16 GM (FLONASE) SCH (09:01)
[2017-02-28] MEDS: buPROPion **SR TABLET** (ZYBAN) 150MG PO SCH ×2 (09:01→21:41)
[2017-02-28] MEDS: NORETHINDRONE 0.35 MG PO SCH (09:01)
[2017-02-28] MEDS: MONTELUKAST 10 MG TAB PO SCH (09:01)
[2017-02-28] MEDS: NIFEdipine 30 MG XL TAB PO SCH (09:02)
[2017-02-28] MEDS: hydroCHLOROthiazide 12.5 MG CAPSULE PO SCH (09:02)
--- NOTE | 2017-02-28 14:29 | MHIPNPDOC ---
[facility] Progress Note Progress Note DATE OF SERVICE: 02/28/17 HISTORY OF THE PRESENT ILLNESS: Patient is a 41-year-old female who reportedly had gone to [facility]'s office where her psychotropic medications are managed and cut herself on wrist with her lopez while waiting to see . Patient was then sent to [facility] ER for evaluation by outpatient provider, indicated admission she had been experiencing passive suicidal ideation, but denies having plan or intent to kill self at the time. Day Worker met with patient today to assess treatment progress on inpatient unit. Patient reports current anxiety level 4/10, depression 4/10 states she is experiencing some improvement since reestarting medication regimen prescribed by her outpatient. Patient denies medication side effects. Patient denies suicidal and homicidal ideation, however, notes she experience suicidal ideation last night, provides no details, then states was a dream about suicide , states she is unable to remember details." Patient denies having current plan or intent to harm or kill self or others at this time. Patient denies auditory or visual hallucinations, denies current urge to engage in self-injurious behavior. Patient states she slept well last night due to not having a roommate , indicates CPAP is effective, makes requests for trazodone dose increase due to a.m. fatigue and morning "dizziness," denies nightmares symptoms but reports vivid dream involving suicidal ideation. Patient states medication side effects were brief and resolution was complete, denies all other medication side effects. Patient states energy level and appetite continued to improve, notes concentration and focus are stabilizing, reports no new episodes of "blanking out," denies physical pain and presents with no signs of acute distress at time of interaction. VITALS: See below NEW TEST RESULTS: No new results PAST MEDICAL/SURGICAL HISTORY: GERD, hypertension, allergic rhinitis, history of kidney stones, osteoarthritis/chronic right knee pain, vitamin D deficiency, obesity, right knee arthroscopic the 01/2017, tonsillectomy, uterine ablation, cholecystectomy, cystoscopy/stone removal, bilateral tubal ligation. Patient has laceration to left wrist which appears to be healing, PA is aware and is treating Labs on admission indicated low anion gap, AST and AGR UDS negative HCG negative 02/22/17 Normal sinus rhythm Normal EKG Comparison tracing not on file EEG pending CURRENT MEDICATIONS: See below MENTAL STATUS EXAMINATION: General appearance: Patient is a 41-year old female, who is pleasant and cooperative, engageable, makes fair eye contact, is less disheveled today, dressed in own clothing, ambulates with steady gait, appears stated age, is observed rocking back and forth on her bed intermittently at time of assessment Speech: Of normal rate, rhythm, volume, spontaneous, coherent Thought processes: Linear, logical, goal-directed. Thought content: Rational, logical, no tangentiality or paranoia noted, no perseveration. Abstract reasoning and computation: Appear intact Description of associations: Intact. Description of abnormal or psychotic thoughts: Patient denies suicidal or homicidal ideation, denies auditory or visual hallucinations, does not appear to be responding to internal stimuli, does not endorse bizarre or paranoid ideation, and denies preoccupation with violence or obsessions. Judgment: Limited, some improvement noted during treatment Insight: Limited, some improvement noted during treatment Orientation: A and O 3. Recent and remote memory: Appear intact Attention span and concentration: Appears within normal limits. Fund of knowledge: Adequate. Mood: "I'm ok today." Patient continues to appear depressed, appears less anxious, no mood lability noted Affect: Blunted but brightens, congruent with mood. DIAGNOSES: Major depressive disorder, recurrent, moderate, rule out anxiety disorder, rule out PTSD, rule out bereavement, rule out borderline personality disorder ASSESSMENT: Patient has adjusted to unit, has been more visible, engaging selectively with peers, is pleasant and cooperative with staff, is participating in unit programming, and has presented with no behavior management challenges. Patient reports continuing improvement to symptoms of anxiety and depression since restarting medication regimen which she had been taking in outpatient environment, indicates increased dose of trazodone is helping to improve sleep, patient denies medication side effects. EEG has been ordered to evaluate periods of "blanking out." Patient denies current suicidal or homicidal ideation, also denies current urge to engage in self-injurious behavior, and verbalizes awareness of how to access supportive services on the unit if needed. Will continue to monitor patient's response to medication restart and will monitor for medication side effects, will continue to evaluate patient's safety, resolution of suicidal ideation and urge to engage in self- injurious behavior, and discharge readiness. Patient reiterates today when prepared for discharge she plans to return home with her and resume outpatient medication management with Dr. Medeiros. Patient is also agreeable to participating in case management and psychotherapy services through [facility], states she is also interested in attending groups through [facility]. Patient is agreeing to allow social service liaison/program coordinator for residence life to assist in exploring potential financial assistance from DSS MANAGEMENT PLAN: Continue Zoloft 150 mg po q day, Wellbutrin SR 150 mg po BID. Reduce trazodone to 50 mg po q hs EEG ordered Maintain safety precautions Patient to attend groups and participate in unit programming to develop coping strategies Engage patient in discharge planning process and arrange meeting with support system to ensure safe discharge planning when appropriate Patient to follow up with PCM upon discharge TIME SPENT: 35 minutes Vital Signs Vital Signs Date Time Temp Pulse Resp B/P (MAP) Pulse Ox O2 Delivery O2 Flow Rate FiO2 02/28/17 09:02 121/61 02/28/17 06:25 97.4 77 18 Room Air Current Medications Current Medications Acetaminophen (Tylenol Tab) 650 mg Q6HP PRN PO HEADACHE or DISCOMFORT Last administered on 02/25/17 22:01; Start 02/21/17 at 18:15; Stop 03/23/17 at 18:14 Al Hydrox/Mg Hydrox/Simethicone (Mylanta) 30 ml Q4HP PRN PO HEARTBURN/ INDIGESTION; Start 02/21/17 at 18:15; Stop 03/23/17 at 18:14 Bupropion HCl (Zyban, Wellbutrin Sr) 150 mg BID PO Last administered on 09:01; Start 02/21/17 at 21:00; Stop 03/23/17 at 20:59 Famotidine (Pepcid) 20 mg BID PO Last administered on 02/28/17 09:01; Start at 21:00; Stop 03/23/17 at 20:59 Fluticasone Propionate (Flonase 0.05% Nasal [place]) 2 spray DAILY NA Last administered on 02/28/17 09:01; Start 02/22/17 at 09:00; Stop 03/24/17 at 08:59 Home Med (Med Rec Complete!) ASDIRECTED XX ; Start 02/21/17 at 14:15; Stop at 14:15; Status DC Hydrochlorothiazide (Hydrodiuril) 12.5 mg DAILY PO Last administered on 09:02; Start 02/22/17 at 09:00; Stop 03/24/17 at 08:59 Magnesium Hydroxide (Milk Of Magnesia) 30 ml DAILYPRN PRN PO CONSTIPATION; Start 02/21/17 at 18:15; Stop 03/23/17 at 18:14 Meloxicam (Mobic) 15 mg DAILY PO Last administered on 02/28/17 09:01; Start at 09:00; Stop 03/24/17 at 08:59 Miscellaneous (Unresolved Clarification Entry) SEE LABEL COMMENTS UNRESOLVED XX ; Start 02/21/17 at 00:01; Stop 02/26/17 at 20:11; Status DC Montelukast Sodium (Singulair) 10 mg DAILY PO Last administered on 02/28/17 09 :01; Start 02/22/17 at 09:00; Stop 03/24/17 at 08:59 Nifedipine (Procardia Xl) 30 mg DAILY PO Last administered on 02/28/17 09:02; Start 02/22/17 at 09:00; Stop 03/24/17 at 08:59 Patient Own Medication (Patient'S Own Med) 1 TABLET DAILY PO Last administered on 02/28/17 09:01; Start 02/27/17 at 09:00; Stop 03/29/17 at 08:59 Patient Own Medication (Patient'S Own Med) Norethindrone 0.35 mg po daily DAILY PO ; Start 02/23/17 at 09:00; Stop 02/26/17 at 20:11; Status DC Sertraline HCl (Zoloft) 150 mg DAILY PO Last administered on 02/28/17 09:01; Start 02/22/17 at 09:00; Stop 03/24/17 at 08:59 Trazodone HCl (Desyrel) 50 mg QHS PO Last administered on 02/25/17 21:19; Start 02/21/17 at 21:00; Stop 02/26/17 at 16:37; Status DC Trazodone HCl (Desyrel) 50 mg QHS PO ; Start 02/28/17 at 21:00; Stop 03/30/17 at 20:59 Trazodone HCl (Desyrel) 100 mg QHS PO Last administered on 6/20/17at 21:48; Start 02/26/17 at 21:00; Stop 02/28/17 at 14:27; Status DC Vitamin D (Drisdol) 50,000 units Q14D@09 PO Last administered on 02/22/17t 09: 08; Start 02/22/17 at 09:00; Stop 02/22/17 at 14:45; Status DC Vitamin D (Drisdol) 50,000 units Th@09 PO ; Start 03/01/17 at 09:00; Stop at 08:59 Allergies Coded Allergies: Latex (Verified Allergy, Unknown, RASH, 02/21/17) Krys Mcrae Feb 28, 2017 14:29
[2017-02-28 18:33] VITALS: BP 125/80
[2017-02-28] MEDS: traZODone 50 MG TAB PO SCH (21:41)
[2017-03-01 06:20] VITALS: BP 122/71
[2017-03-01] MEDS ORDERED: VITAMIN D 50,000 UNITS CAPSULE (ERGOCALCIFEROL 1.25MG) PO SCH (09:00)
[2017-03-01] MEDS: MELOXICAM (MOBIC) 7.5 MG TAB PO SCH (09:37)
[2017-03-01] MEDS: FAMOTIDINE 20 MG TAB PO SCH ×2 (09:37→21:44)
[2017-03-01] MEDS: FLUTICASONE PROP 0.05% NASAL SPRAY 16 GM (FLONASE) SCH (09:37)
[2017-03-01] MEDS: buPROPion **SR TABLET** (ZYBAN) 150MG PO SCH ×2 (09:38→21:44)
[2017-03-01] MEDS: SERTRALINE HCL 50 MG TAB PO SCH (09:38)
[2017-03-01] MEDS: MONTELUKAST 10 MG TAB PO SCH (09:38)
[2017-03-01] MEDS: NORETHINDRONE 0.35 MG PO SCH (09:38)
[2017-03-01] MEDS: ACETAMINOPHEN TAB 650MG DOSE (2X325MG) PO PRN (09:39)
[2017-03-01] MEDS: hydroCHLOROthiazide 12.5 MG CAPSULE PO SCH (09:39)
[2017-03-01] MEDS: NIFEdipine 30 MG XL TAB PO SCH (09:40)
--- NOTE | 2017-03-01 14:17 | MHIPNPDOC ---
[facility] Progress Note Progress Note DATE OF SERVICE: 03/01/17 HISTORY OF THE PRESENT ILLNESS: Patient is a 41-year-old female who reportedly had gone to PCM's office where her psychotropic medications are managed and cut herself on wrist with her lopez while waiting to see . Patient was then sent to [facility] ER for evaluation by outpatient provider, indicated admission she had been experiencing passive suicidal ideation, but denies having plan or intent to kill self at the time. Lieutenant Fire Fighter met with patient today to assess treatment progress on inpatient unit. Patient reports improvement to symptoms of anxiety and depression, states she continues to experience improvement since reestarting medication regimen prescribed by her outpatient provider. Patient states she experienced brief "dizziness" last night, and she woke up with a headache this morning which has since resolved, indicates she is not sure if symptoms are related to medication side effects, notes symptoms are manageable. Patient denies suicidal and homicidal ideation, notes she last experienced fleeting passive suicidal ideation 2 days ago, denies having plan or intent at the time, denies recently experiencing urge to cut. Patient denies having current plan or intent to harm or kill self or others at this time. Patient denies auditory or visual hallucinations, denies current urge to engage in self-injurious behavior. Patient is tearful at times during assessment, noting groups are going well but "sometimes the stroke my emotions and then I remember bad things from the past. " Patient states she slept well with use of trazodone, denies nightmare symptoms , states CPAP remains effective. Patient states energy level and appetite continue to improve, notes concentration and focus are stabilizing, reports no new episodes of "blanking out," denies physical pain and presents with no signs of acute distress at time of interaction. VITALS: See below NEW TEST RESULTS: No new results PAST MEDICAL/SURGICAL HISTORY: GERD, hypertension, allergic rhinitis, history of kidney stones, osteoarthritis/chronic right knee pain, vitamin D deficiency, obesity, right knee arthroscopic the 01/2017, tonsillectomy, uterine ablation, cholecystectomy, cystoscopy/stone removal, bilateral tubal ligation. Patient has laceration to left wrist which appears to be healing, PA is aware and is treating Labs on admission indicated low anion gap, AST and AGR UDS negative HCG negative 02/22/17 Normal sinus rhythm Normal EKG Comparison tracing not on file EEG pending CURRENT MEDICATIONS: See below MENTAL STATUS EXAMINATION: General appearance: Patient is a 41-year old female, who is pleasant and cooperative, engageable, makes fair eye contact, is less disheveled today, dressed in own clothing, ambulates with steady gait, appears stated age, exhibits reduced rocking back and forth on her bed at time of assessment Speech: Of normal rate, rhythm, volume, spontaneous, coherent Thought processes: Linear, logical, goal-directed. Thought content: Rational, logical, no tangentiality or paranoia noted, no perseveration. Abstract reasoning and computation: Appear intact Description of associations: Intact. Description of abnormal or psychotic thoughts: Patient denies suicidal or homicidal ideation, denies auditory or visual hallucinations, does not appear to be responding to internal stimuli, does not endorse bizarre or paranoid ideation, and denies preoccupation with violence or obsessions. Judgment: Fair, some improvement noted during treatment Insight: Limited, some improvement noted during treatment Orientation: A and O 3. Recent and remote memory: Appear intact Attention span and concentration: Appears within normal limits. Fund of knowledge: Adequate. Mood: "I'm ok today today." Patient appears less depressed, less anxious, no mood lability noted Affect: Blunted but brightens, congruent with mood. DIAGNOSES: Major depressive disorder, recurrent, moderate, rule out anxiety disorder, rule out PTSD, rule out bereavement, rule out borderline personality disorder ASSESSMENT: Patient has adjusted to unit, has been more visible, engaging selectively with peers, is pleasant and cooperative with staff, is participating in unit programming, and has presented with no behavior management challenges. Patient reports continuing improvement to symptoms of anxiety and depression since restarting medication regimen which she had been taking in outpatient environment, notes trazodone at current doses effective for sleep, reports what may be side effects from medications (intermittent dizziness and a.m. headache 1), agrees to monitor and report recurrence/ worsening of symptoms. EEG has been ordered to evaluate reported periods of "blanking out." Patient denies current suicidal or homicidal ideation, also denies current urge to engage in self-injurious behavior, and verbalizes awareness of how to access supportive services on the unit if needed. Will continue to monitor patient's response to medication restart and will monitor for medication side effects, will continue to evaluate patient's safety, resolution of suicidal ideation and urge to engage in self-injurious behavior, and discharge readiness. Patient reiterates today when prepared for discharge she plans to return home with her and resume outpatient medication management with Dr. Medeiros. Patient is also agreeable to participating in case management and psychotherapy services through [facility], states she is also interested in attending groups through [facility]. Patient is agreeing to allow social science teacher/auto club safety program coordinator to assist in exploring potential financial assistance from DSS MANAGEMENT PLAN: Continue Zoloft 150 mg po q day, Wellbutrin SR 150 mg po BID, and trazodone 50 mg po q hs EEG ordered Maintain safety precautions Patient to attend groups and participate in unit programming to develop coping strategies Engage patient in discharge planning process and arrange meeting with support system to ensure safe discharge planning when appropriate Patient to follow up with PCM upon discharge TIME SPENT: 35 minutes Vital Signs Vital Signs Date Time Temp Pulse Resp B/P (MAP) Pulse Ox O2 Delivery O2 Flow Rate FiO2 03/01/17 09:40 122/71 03/01/17 06:20 99.4 79 18 Room Air Current Medications Current Medications Acetaminophen (Tylenol Tab) 650 mg Q6HP PRN PO HEADACHE or DISCOMFORT Last administered on 03/01/17 09:39; Start 02/21/17 at 18:15; Stop 03/23/17 at 18:14 Al Hydrox/Mg Hydrox/Simethicone (Mylanta) 30 ml Q4HP PRN PO HEARTBURN/ INDIGESTION; Start 02/21/17 at 18:15; Stop 03/23/17 at 18:14 Bupropion HCl (Zyban, Wellbutrin Sr) 150 mg BID PO Last administered on 09:38; Start 02/21/17 at 21:00; Stop 03/23/17 at 20:59 Famotidine (Pepcid) 20 mg BID PO Last administered on 03/01/17 09:37; Start at 21:00; Stop 03/23/17 at 20:59 Fluticasone Propionate (Flonase 0.05% Nasal [place]) 2 spray DAILY NA Last administered on 03/01/17 09:37; Start 02/22/17 at 09:00; Stop 03/24/17 at 08:59 Home Med (Med Rec Complete!) ASDIRECTED XX ; Start 02/21/17 at 14:15; Stop at 14:15; Status DC Hydrochlorothiazide (Hydrodiuril) 12.5 mg DAILY PO Last administered on 09:39; Start 02/22/17 at 09:00; Stop 03/24/17 at 08:59 Magnesium Hydroxide (Milk Of Magnesia) 30 ml DAILYPRN PRN PO CONSTIPATION; Start 02/21/17 at 18:15; Stop 03/23/17 at 18:14 Meloxicam (Mobic) 15 mg DAILY PO Last administered on 03/01/17 09:37; Start at 09:00; Stop 03/24/17 at 08:59 Miscellaneous (Unresolved Clarification Entry) SEE LABEL COMMENTS UNRESOLVED XX ; Start 02/21/17 at 00:01; Stop 02/26/17 at 20:11; Status DC Montelukast Sodium (Singulair) 10 mg DAILY PO Last administered on 03/01/17 09 :38; Start 02/22/17 at 09:00; Stop 03/24/17 at 08:59 Nifedipine (Procardia Xl) 30 mg DAILY PO Last administered on 03/01/17 09:40; Start 02/22/17 at 09:00; Stop 03/24/17 at 08:59 Patient Own Medication (Patient'S Own Med) 1 TABLET DAILY PO Last administered on 03/01/17 09:38; Start 02/27/17 at 09:00; Stop 03/29/17 at 08:59 Patient Own Medication (Patient'S Own Med) Norethindrone 0.35 mg po daily DAILY PO ; Start 02/23/17 at 09:00; Stop 02/26/17 at 20:11; Status DC Sertraline HCl (Zoloft) 150 mg DAILY PO Last administered on 03/01/17 09:38; Start 02/22/17 at 09:00; Stop 03/24/17 at 08:59 Trazodone HCl (Desyrel) 50 mg QHS PO Last administered on 02/25/17 21:19; Start 02/21/17 at 21:00; Stop 02/26/17 at 16:37; Status DC Trazodone HCl (Desyrel) 50 mg QHS PO Last administered on 6/21/17at 21:41; Start 02/28/17 at 21:00; Stop 03/30/17 at 20:59 Trazodone HCl (Desyrel) 100 mg QHS PO Last administered on 02/27/17 21:48; Start 02/26/17 at 21:00; Stop 02/28/17 at 14:27; Status DC Vitamin D (Drisdol) 50,000 units Q14D@09 PO Last administered on 02/22/17 09: 08; Start 02/22/17 at 09:00; Stop 02/22/17 at 14:45; Status DC Vitamin D (Drisdol) 50,000 units Th@09 PO Last administered on 03/01/17 09:37 ; Start 03/01/17 at 09:00; Stop 03/31/17 at 08:59 Allergies Coded Allergies: Latex (Verified Allergy, Unknown, RASH, 02/21/17) Krys Mcrae Mar 01, 2017 14:17
[2017-03-01 18:00] VITALS: BP 150/92
[2017-03-01] MEDS: traZODone 50 MG TAB PO SCH (21:44)
[2017-03-02 06:32] VITALS: BP 132/80
[2017-03-02] MEDS: buPROPion **SR TABLET** (ZYBAN) 150MG PO SCH (08:23)
[2017-03-02] MEDS: SERTRALINE HCL 50 MG TAB PO SCH (08:23)
[2017-03-02] MEDS: FAMOTIDINE 20 MG TAB PO SCH (08:23)
[2017-03-02] MEDS: FLUTICASONE PROP 0.05% NASAL SPRAY 16 GM (FLONASE) SCH (08:23)
[2017-03-02] MEDS: MONTELUKAST 10 MG TAB PO SCH (08:23)
[2017-03-02] MEDS: MELOXICAM (MOBIC) 7.5 MG TAB PO SCH (08:23)
[2017-03-02 08:24] VITALS: BP 132/80
[2017-03-02] MEDS: hydroCHLOROthiazide 12.5 MG CAPSULE PO SCH (08:24)
[2017-03-02] MEDS: NIFEdipine 30 MG XL TAB PO SCH (08:24)
[2017-03-02] MEDS: NORETHINDRONE 0.35 MG PO SCH (08:24)
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
[2017-03-02] MEDS ORDERED: BUPR15TASR PO (12:50)
[2017-03-02] MEDS ORDERED: TRAZO50TA PO (12:50)
[2017-03-02] MEDS ORDERED: SERT50TA PO (12:50)
--- NOTE | 2017-03-04 07:27 | EEG ---
DATE OF PROCEDURE: 03/02/2017 REFERRING PHYSICIAN: Dr. Howard Watkins DIAGNOSIS: Episodes of blanking out. EEG NUMBER: 17 [id number]. HISTORY: The patient is a 41-year-old woman who was admitted at [facility] inpatient mental health unit due to suicidal ideation. She has moments of blacking out. This EEG was done to rule out epileptic potential. She is currently taking Wellbutrin, famotidine, hydrochlorothiazide, meloxicam, Singulair, nifedipine, sertraline, trazodone, etc. TECHNICAL DESCRIPTION: This digital EEG was recorded by 21 scalp, ear and two EKG electrodes and was reviewed in bipolar and referential montages following reformatting in 10-20 international electrode placement system. INTERPRETATION: The patient was noted to be in awake and drowsy states during this EEG. Resting awake background rhythm consisted of well-formed posterior dominant rhythm with anterior/posterior rhythm comprising of 10 Hz alpha activity measuring 15 - 60 microvolts in amplitude which was symmetric and reactive to eye opening. Anteriorly low voltage and mixed frequency activity was noted. Attenuation of posterior dominant rhythm was seen during transition into drowsiness. Stage I and II sleep were reviewed and were symmetric bilaterally. Hyperventilation elicited mild theta slowing of background rhythm. Photic stimulation remained unremarkable. EKG revealed normal sinus rhythm. No focal, lateralizing or epileptiform abnormalities were seen. No clinical or electrographic seizures were recorded. CONCLUSION: This EEG in awake, drowsy states, stage I and II sleep is within normal limits.
== END 2017-03-02 13:28 | disposition home or self-care (01) | DRG 751 ==
LOC: M ED 10:02 → M ED INP 13:20 → M PSY 16:50
PROVIDERS: ADMIT Psychiatry & Neurology Psychiatry; ATTEND Psychiatry & Neurology Psychiatry
DX: F33.1 Major depressive disorder, recurrent, moderate (principal); Z68.42 Body mass index [BMI] 45.0-49.9, adult; R45.851 Suicidal ideations; F43.10 Post-traumatic stress disorder, unspecified; F41.9 Anxiety disorder, unspecified; Z63.4 Disappearance and death of family member; F60.3 Borderline personality disorder; Z79.899 Other long term (current) drug therapy; Z91.040 Latex allergy status; Z90.49 Acquired absence of other specified parts of digestive tract; Z98.51 Tubal ligation status; Z83.3 Family history of diabetes mellitus; I10 Essential (primary) hypertension; K21.9 Gastro-esophageal reflux disease without esophagitis; J30.9 Allergic rhinitis, unspecified; E66.9 Obesity, unspecified; M25.561 Pain in right knee; S61.512A Laceration without foreign body of left wrist, initial encounter; X78.8XXA Intentional self-harm by other sharp object, initial encounter; Y92.531 Health care provider office as the place of occurrence of the external cause; Y99.9 Unspecified external cause status; Y93.89 Activity, other specified

== ENCOUNTER 2019-02-28 23:08 | Emergency (ER) | payer BC, OTHER, SELFPAY ==
[~2019-02-28] VITALS: Ht 154.9 cm; Wt 102.3 kg
[~2019-02-28 23:08] MED LIST changes: +BUPR15TASR PO; +FLON1SPR; +NIFE30TA7 PO; +PATIENT COMMENT; +SERT-141 PO; -SERT50TA PO; +TRAZ-252 PO; +TRAZ1TAB10 PO; -TRAZ50TA4 PO; -VITA50003 PO; +VITA50005 PO
[2019-03-01] MEDS ORDERED: MORPHINE 4 MG/ML 1ML VIAL/SYRINGE (J2270) IV ONE (00:15)
[2019-03-01] MEDS ORDERED: NS 1,000 ML IV ONE (00:15)
[2019-03-01 01:20] LABS: HEMATOCRIT 37.6 % (36.0-47.0); HEMOGLOBIN 12.8 g/dl (12.0-15.5); RED BLOOD COUNT 3.99 10^6/uL (4.00-5.40); WHITE BLOOD COUNT 7.4 10^3/uL (4.0-10.0)
[2019-03-01 01:21] LABS: BASO # 0.1 10^3/uL (0.0-0.2); BASO % 0.7 % (0.0-1.0); EOS # 0.3 10^3/uL (0.0-0.50); EOS % 4.6 % (0.0-3.0); LYMPH # 1.9 10^3/uL (1.5-4.5); MEAN CORPUSCULAR HEMOGLOBIN 32.1 pg (27.0-33.0); MEAN CORPUSCULAR VOLUME 94.2 fl (80.0-96.0); MONO # 0.6 10^3/uL (0.0-0.8); MONO % 8.6 % (0.0-5.0); NEUTROPHILS # 4.5 10^3/uL (1.8-7.7); NEUTROPHILS % 60.7 % (36.0-66.0); PLATELET COUNT, AUTOMATED 299 10^3/uL (150-450)
[2019-03-01 01:38] LABS: HCG, SERUM QUALITATIVE NEGATIVE (NEGATIVE)
[2019-03-01 01:46] LABS: ALT/SGPT 24 U/L (12-78); BILIRUBIN,DIRECT 0.1 MG/DL (0.0-0.2); BILIRUBIN,TOTAL 0.5 MG/DL (0.2-1.0); BLOOD UREA NITROGEN 10 MG/DL (7-18); CALCIUM LEVEL 8.9 MG/DL (8.5-10.1); CARBON DIOXIDE LEVEL 29 MEQ/L (21-32); CHLORIDE LEVEL 109 MEQ/L (98-107); CREATININE FOR GFR 0.65 MG/DL (0.55-1.30); GLOMERULAR FILTRATION RATE > 60.0 (>58); GLUCOSE, FASTING 110 MG/DL (70-100); LIPASE 85 U/L (73-393); POTASSIUM SERUM 4.2 MEQ/L (3.5-5.1); SODIUM LEVEL 143 MEQ/L (136-145); TOTAL PROTEIN 6.7 GM/DL (6.4-8.2)
[2019-03-01 01:47] LABS: APPEARANCE, URINE HAZY (CLEAR); BACTERIA, URINE AUTO NEGATIVE (NEGATIVE); BILIRUBIN, URINE AUTO NEGATIVE (NEGATIVE); BLOOD, URINE BLOOD 1+ (NEGATIVE); COLOR, URINE YELLOW (YELLOW); GLUCOSE, URINE (UA) AUTO NEGATIVE (NEGATIVE); KETONE, URINE AUTO NEGATIVE (NEGATIVE); LEUKOCYTE ESTERASE, URINE AUTO NEGATIVE (NEGATIVE); MUCUS, URINE SMALL (NEGATIVE); NITRITE, URINE AUTO NEGATIVE (NEGATIVE); PROTEIN, URINE AUTO NEGATIVE (NEGATIVE); RBC, URINE AUTO 1 /HPF (0-3); SPECIFIC GRAVITY URINE AUTO 1.013 (1.002-1.035); SQUAMOUS EPITHELIAL CELL UR AU 7 /HPF (0-6); WBC, URINE AUTO 2 /HPF (0-3)
[2019-03-01] MEDS ORDERED: METOCLOPRAMIDE INJ 10MG/2ML VIAL (J2765) IV ONE (02:15)
[2019-03-01] MEDS ORDERED: ISOVUE-370 76% 100ML VIAL (Q9967) As Ordered ONE (02:38)
[2019-03-01] MEDS ORDERED: KETOROLAC 30 MG/ML VIAL (J1885) IV ONE (03:15)
--- NOTE | 2019-03-01 05:13 | REPVR ---
EXAM: CT Abdomen and Pelvis With Contrast EXAM DATE/TIME: 03/01/2019 2:45 AM CLINICAL HISTORY: 43 years old, female; Abdominal pain; Localized; Right lower quadrant (rlq); Additional info: Rlq pain TECHNIQUE: Imaging protocol: Axial computed tomography images of the abdomen and pelvis with intravenous contrast. Coronal and sagittal reformatted images were created and reviewed. Radiation optimization: All CT scans at this facility use at least one of these dose optimization techniques: automated exposure control; mA and/or kV adjustment per patient size (includes targeted exams where dose is matched to clinical indication); or iterative reconstruction. Contrast material: ISOVUE 370; Contrast volume: 100 ml; Contrast route: IV; COMPARISON: CT ABD PELVIS W/O CONTRAST 11/03/2012 7:32 PM FINDINGS: Lungs: There is a 4 mm subpleural nodule in the right middle lobe which is unchanged compared to 2012. No followup needed. Liver: There are no focal liver lesions present. Gallbladder and bile ducts: There has been a cholecystectomy. There is stable mild biliary ductal dilation. The common bile duct measures 12 mm in diameter in the suprapancreatic region. Pancreas: The pancreas is normal with no ductal dilation. Spleen: The spleen is normal. Adrenals: The adrenal glands are normal. Kidneys and ureters: There are small, nonobstructing stones in the left kidney upper pole.There are no ureteral stones or hydronephrosis. Stomach and bowel: There are several fluid-filled small bowel loops with air-fluid levels, but without significant dilation. No bowel wall thickening is seen. Appendix: A normal appendix is identified. Intraperitoneal space: There is no evidence of free intraperitoneal or pelvic fluid. There is no free intraperitoneal air. Vasculature: The aorta is normal. No aneurysm. Lymph nodes: No lymphadenopathy is seen. Bladder: The bladder is unremarkable. No stones identified. Reproductive: There is a small hypodense lesion in the fundus of the uterus, consistent with a small fibroid. Bones/joints: No suspicious osseous lesions. No acute fractures or dislocations. Soft tissues: Unremarkable. IMPRESSION: 1. Normal appearance of the appendix. 2. Nonspecific small bowel fluid levels without signs of obstruction or significant inflammation of the bowel. 3. Nonobstructing stones in the left kidney upper pole. 4. Stable mild biliary ductal dilation. Electronically signed by: Slaly Villalobos On 03/01/2019 05:12:42 AM
[2019-03-01 06:01] VITALS: BP 113/64
== END 2019-03-01 06:45 | disposition home or self-care (01) ==
LOC: M ED 23:08
DX: R10.31 Right lower quadrant pain (principal); R11.0 Nausea; I10 Essential (primary) hypertension; K21.9 Gastro-esophageal reflux disease without esophagitis; F32.9 Major depressive disorder, single episode, unspecified; Z91.040 Latex allergy status; Z79.899 Other long term (current) drug therapy
CPT/HCPCS: 74177; 80048; 80076; 81001; 83690; 84703; 85025; 87086; 96374; 96375; 99284; J1885; J2270; J2765; Q9967

== ENCOUNTER → 2019-07-25 | Outpatient (CLI) | payer OTHER ==
--- NOTE | 2019-07-25 10:30 | REP ---
Chest x-ray: Two views. History: Wheezing . Comparison study: No comparison . Findings: The lungs are well inflated and free of infiltrate. The pleural angles are sharp. The heart size is normal. Pulmonary vasculature is not increased. No significant bony abnormality is seen. Impression: Negative chest x-ray. Electronically Signed by Gordy Watkins MD 07/25/2019 10:22 A
== END ==
LOC: M LRY 09:59
PROVIDERS: ATTEND Nurse Practitioner Family
DX: R06.2 Wheezing (principal)

== ENCOUNTER → 2019-07-25 | Outpatient (REF) | payer OTHER | LOC: M SFHCLERA 09:39 | PROVIDERS: ATTEND Nurse Practitioner Family | DX: R53.81 Other malaise (principal) ==